=== PATIENT | female | born 1990 | race Native Hawaiian/Other Pacific Islander ===

== ENCOUNTER 2022-09-05 20:58 | Emergency (ER) | payer OTHER ==
--- NOTE | 2022-09-05 22:36 | XRAY Report ---
PROCEDURE: Hand 3 View LT INDICATIONS: Trauma TECHNIQUE: 3 views of the hand acquired. COMPARISON: None. FINDINGS: Bones: There is a mildly displaced fracture of the fourth metacarpal head. No dislocations. No suspic ious bony lesions. Soft tissues: No suspicious soft tissue calcifications. IMPRESSION: 1. Mildly displaced fracture of the fourth metacarpal head. Reviewed by: Familia Begum MD on 09/05/2022 10:35 PM [facility] Approved by: Familia Begum MD on 09/05/2022 10:35 PM PST Station ID: [id number]
[2022-09-06 00:15] LABS: HCG UR QUAL NEGATIVE
--- NOTE | 2022-09-06 01:34 | ED Physician Documentation ---
History of Present Illness - Stated complaint Stated Complaint: L HAND/ FINGER INJ - Chief complaint Chief Complaint: Trauma Ext - History obtained from History obtained from: Patient - Additonal information Additional information: 32yF p/w L fourth finger pain. sudden onset after speaker fell on it, constant, moderate severity, aching, a/w swelling, worse when moving it. denies other injury Review of Systems Skin: denies: Abrasion (s) Musculoskeletal: reports: Extremity pain PD PAST MEDICAL HISTORY - Past Medical History Past Medical History: Yes Psych: Other Other Past Medical History: Insomnia - Past Surgical History Past Surgical History: No - Present Medications Home Medications: Ambulatory Orders Medication Instructions Recorded Confirmed traZODone [Desyrel] 50 mg PO HS PRN 09/05/22 09/05/22 - Allergies Allergies/Adverse Reactions: Allergies Allergy/AdvReac Type Severity Reaction Status Date / Time No Known Drug Allergies Allergy Verified 09/05/22 21:13 - Social History Does the pt smoke?: Yes Smoking Status: Current every day smoker Does the pt drink ETOH?: Yes ETOH Use: Wine Does the pt have substance abuse?: No - Immunizations Immunizations are current?: Yes - POLST Patient has POLST: No PD ED PE NORMAL - Vitals Vital signs reviewed: Yes - General General: Alert and oriented X 3, No acute distress, Well developed/nourished - HEENT HEENT: Atraumatic, PERRL, EOMI - Derm Derm: Normal color, Warm and dry - Extremities Extremities: Other (L fourth pip joint and fourth metacarpal ttp. 2+ radial pulses. normal sensation and cap refill) Results - Vitals Vitals: Vital Signs - 24 hr 09/06/22 01:44 Heart Rate 82 Respiratory 16 Rate Blood Pressure 110/70 O2 Saturation 98 Oxygen O2 Source Room air - Labs Labs: Laboratory Tests 09/05/22 00:00 Urine HCG, Qual NEGATIVE PD MEDICAL DECISION MAKING - ED course ED course: 32yF p/w L fourth metacarpal fx, mildly displaced, angulated <30 degrees. volar splint applied. plan to f/u ortho. Departure - Departure Disposition: 01 Home, Self Care Clinical Impression: Metacarpal bone fracture Condition: Stable Instructions: ED Fx Hand Closed Follow-Up: Will Masters MD [Provider Admit Priv/Credential] - Comments: You were seen in the ED for a fourth metacarpal fracture (break in a bone of the hand). [facility] an [facility]ist within 10 days. Return to the ED if you have other concerns. take ibuprofen 600mg every 6 hours as needed for pain. Discharge Date/Time: 09/06/22 01:44
[2022-09-06 01:45] VITALS: BP 110/70
== END 2022-09-06 01:44 | disposition home or self-care (01) ==
LOC: ED 20:58
DX: S62.395A Other fracture of fourth metacarpal bone, left hand, initial encounter for closed fracture (principal); W20.8XXA Other cause of strike by thrown, projected or falling object, initial encounter; F17.200 Nicotine dependence, unspecified, uncomplicated
CPT/HCPCS: 81025; 99282; 99284